=== PATIENT | male | born 1950 | race Caucasian/White ===

== ENCOUNTER → 2018-01-18 | Outpatient (CLI) | payer MEDICARE, BC | END | disposition home or self-care (01) | LOC: ROC 01-17 15:12 | PROVIDERS: ATTEND Radiology Radiation Oncology | DX: C61 Malignant neoplasm of prostate (principal); Z88.2 Allergy status to sulfonamides | CPT/HCPCS: G0463 ==

== ENCOUNTER 2018-03-29 07:15 | Outpatient (CLI) | payer MEDICARE, BC ==
[2018-03-29] MEDS ORDERED: FENTANYL PF 100 MCG/2ML ONE (10:00)
[2018-03-29] MEDS ORDERED: MIDAZOLAM 1 MG/ML, 5ML ONE (10:00)
[2018-03-29] MEDS ORDERED: LIDOCAINE/PF 1%, 30ML ONE (10:00)
== END 2018-03-29 23:59 | disposition home or self-care (01) ==
LOC: ROC 07:15 → EDSTATUS 11:16 → ROC 23:59
PROVIDERS: ATTEND Radiology Radiation Oncology
DX: C61 Malignant neoplasm of prostate (principal)
CPT/HCPCS: 76942; 77332; 99156; A4648; J2250; J3010; J3490; 77290; 77470

== ENCOUNTER → 2018-04-04 | Outpatient (CLI) | payer MEDICARE, BC | END | disposition home or self-care (01) | LOC: CFH 09:41 | PROVIDERS: ATTEND Radiology Radiation Oncology | DX: Z08 Encounter for follow-up examination after completed treatment for malignant neoplasm (principal); C61 Malignant neoplasm of prostate; I10 Essential (primary) hypertension; Z85.46 Personal history of malignant neoplasm of prostate | CPT/HCPCS: 36415; 72195; 84153 ==

== ENCOUNTER → 2018-04-12 | Outpatient (CLI) | payer MEDICARE, BC ==
[2018-04-12 12:37] LABS: MICROSCOPIC AUTO
[2018-04-12 12:43] LABS: CULTURE INDICATED? YES
== END | disposition home or self-care (01) ==
LOC: CFH 08:51
PROVIDERS: ATTEND Radiology Radiation Oncology
DX: N39.0 Urinary tract infection, site not specified (principal)
CPT/HCPCS: 81001; 87086; 87147

== ENCOUNTER 2018-07-22 07:02 | Outpatient (CLI) | payer MEDICARE, BC | END 2018-07-22 23:59 | disposition home or self-care (01) | LOC: ROC 07:02 | PROVIDERS: ATTEND Radiology Radiation Oncology | DX: C61 Malignant neoplasm of prostate (principal); K58.8 Other irritable bowel syndrome; Z79.899 Other long term (current) drug therapy; Z88.0 Allergy status to penicillin; Z88.2 Allergy status to sulfonamides | CPT/HCPCS: G0463 ==

== ENCOUNTER 2019-02-06 13:07 | Outpatient (CLI) | payer MEDICARE, BC | END 2019-02-06 23:59 | disposition home or self-care (01) | LOC: ROC 13:07 | PROVIDERS: ATTEND Radiology Radiation Oncology | DX: C61 Malignant neoplasm of prostate (principal); Z79.899 Other long term (current) drug therapy; Z88.1 Allergy status to other antibiotic agents; Z88.0 Allergy status to penicillin; Z51.0 Encounter for antineoplastic radiation therapy | CPT/HCPCS: 81001; G0463 ==

== ENCOUNTER 2019-02-06 15:58 | Outpatient (CLI) | payer MEDICARE, BC ==
[2019-02-06 16:32] LABS: MICROSCOPIC INDICATED
[2019-02-06 16:37] LABS: CULTURE INDICATED? NO
== END 2019-02-06 23:59 | disposition home or self-care (01) ==
LOC: LAB 15:58
PROVIDERS: ATTEND Radiology Radiation Oncology
DX: C61 Malignant neoplasm of prostate (principal); R30.0 Dysuria
CPT/HCPCS: 81001

== ENCOUNTER 2019-07-27 07:48 | Outpatient (CLI) | payer MEDICARE, BC | END 2019-07-27 23:59 | disposition home or self-care (01) | LOC: ROC 07:48 | PROVIDERS: ATTEND Radiology Radiation Oncology | DX: Z08 Encounter for follow-up examination after completed treatment for malignant neoplasm (principal); C61 Malignant neoplasm of prostate | CPT/HCPCS: 99212; G0463 ==